=== PATIENT | female | born 1960 | race Caucasian/White ===

== ENCOUNTER 2016-03-20 09:19 | Emergency (ER) | payer BC ==
[~2016-03-20] VITALS: Wt 100.0 kg
[~2016-03-20 09:19] MED LIST: ASPI-676 PO; ATOR10TA23 PO; CLOP75TA19 PO; LISI-525 PO; METO-53 PO
[2016-03-20] MEDS ORDERED: ACYC800T57 PO (09:53)
--- NOTE | 2016-03-20 10:33 | ERD ---
ER Documentation Chief Complaint Date/Time DATE: 03/20/16 TIME: 10:29 Chief Complaint RASH ON RIGHT BREAST GOING TO BACK, ONSET 2 DAYS HPI Patient is a 56-year-old female who presents the ED with a rash on her right breast. She states that she developed this rash 2 days ago. She denies itchiness or drainage at the site. She states that the rash is painful. She denies fever or chills. She denies nausea, vomiting or diarrhea. She denies chest pain, cough or shortness of breath. She denies headache or dizziness. She denies leg pain or swelling. She has tried alcohol and lotion on her rash with minimal results. She states that the rash is tingling and blisterlike. She states that she has had chickenpox as a child. She states that she has never had a rash like this in the past. ROS All systems reviewed and are negative except as per history of present illness. Medications Home Meds Active Scripts Acyclovir* (Zovirax*) 800 Mg Tablet, 800 MG PO 5 TIMES DAILY for 7 Days, TAB Prov:MARTA MCKEON PA-C 03/20/16 Reported Medications Metoprolol (Lopressor) 50 Mg Tablet, 50 MG PO DAILY 06/04/13 Aspirin (Sergio Child) 81 Mg Chew, 81 MG PO DAILY 08/13/11 Atorvastatin (Lipitor) 10 Mg Tablet, 10 MG PO DAILY 08/13/11 Lisinopril* (Zestril*) 20 Mg Tablet, 20 MG PO DAILY 08/13/11 Clopidogrel Bisulfate (Plavix) 75 Mg Tablet, 75 MG PO DAILY 08/13/11 Allergies Allergies: Coded Allergies: Penicillins (Verified Allergy, Unknown, 06/15/14) codeine (Verified Allergy, Unknown, 06/15/14) epinephrine (Verified Allergy, Unknown, 06/15/14) iodine (Verified Allergy, Unknown, 06/15/14) sulfamethoxazole (Verified Allergy, Unknown, 06/15/14) trimethoprim (Verified Allergy, Unknown, 06/15/14) Uncoded Allergies: ANESTHESIA (Allergy, Unknown, 12/06/13) PCN (Allergy, Unknown, 12/06/13) PMhx/Soc History of Surgery: Yes (RIGHT ANKLE; EYE SURGERY; HEEL CORE SURGERY;) Anesthesia Reaction: Yes (ALLERGY TO ANESTHESIA; HEART RATE SLOWS; HYPOTHERMIA ; DECREASED RESP RATE) Hx Neurological Disorder: Yes (CEREBRAL PALSY; MILD EPILEPSY R/T PHOTOSENSITIVITY) Hx Respiratory Disorders: No Hx Cardiac Disorders: Yes (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 Appears in no acute distress. HEAD: Normocephalic, atraumatic. LUNG: Clear to auscultation bilaterally. No rhonchi, wheezing, rales or coarse breath sounds. HEART: Regular rate and rhythm. No murmurs, rubs or gallops. ABDOMEN: Soft, nontender, and nondistended. Positive bowel sounds in all four quadrants. No rebound tenderness, no guarding. (-) McBurneys point tenderness. No CVA tenderness. BACK: No midline tenderness. Extremities: Equal pulses bilaterally. No peripheral clubbing, cyanosis or edema. No unilateral leg swelling. NEUROLOGIC: Alert and oriented. Moving all four extremities. 5/5 strength in all extremities. Normal speech. Steady gait. SKIN: Normal color. Warm and dry. . Capillary refill < 2 seconds. Erythematous vesicular rash located on the undersurface of the right breast along to the posterior back. In a dermatomal fashion. No other rashes noted on body. Tender. Procedures/MDM ER COURSE: I kept the patient and/or family informed of laboratory and diagnostic imaging results throughout the emergency room course. MEDICAL DECISION MAKING: This is a 56-year-old female who presents with rash. Vital signs were reviewed. Patient is afebrile. Patient is not hypoxic. Patient is not toxic or ill- appearing. Temperature 98.3, blood pressure 139/81. Patient's rash is likely herpes zoster due to the dermatomoal fashion and vesicular erythematous lesions. Low suspicion for necrotizing fasciitis, SJS, toxic epidermal necrolysis, Kawasaki, erythema multiforme, gangrene, scarlet fever, meningococcemia, sepsis, anaphylaxis. DISCHARGE: At this time, patient is stable for discharge and outpatient management with no new complaints during the ER course. Patient was sent home with acyclovir. Patient will be discharged home with instructions to recheck for new or worsening symptoms such as fever, nausea, weakness, LOC and to follow up with primary care in the next 1-2 days. Patient was advised to return to the ER for any new or worsening symptoms. Plan was discussed and patient and/or family understands and agrees. Home instructions were given. Departure Diagnosis: Primary Impression: Rash Condition: Stable Patient Instructions: Shingles (Herpes Zoster) Additional Instructions: Call your primary care doctor TOMORROW for an appointment during the next 1-2 days.See the doctor sooner or return here if your condition worsens before your appointment time. MARTA MCKEON PA-C Mar 20, 2016 10:32
== END 2016-03-20 10:41 | disposition home or self-care (01) ==
LOC: FTE 09:19
DX: R21 Rash and other nonspecific skin eruption (principal); Z79.82 Long term (current) use of aspirin; Z87.891 Personal history of nicotine dependence
CPT/HCPCS: 99283